=== PATIENT | female | born 2000 | race Caucasian/White ===

== ENCOUNTER 2022-11-12 14:43 | Emergency (ER) | payer BC, SELFPAY ==
[2022-11-12 14:48] VITALS: BP 148/88; PULSE 99; RESP 18; TEMP 37; O2SAT 98
--- NOTE | 2022-11-12 15:59 | NUR.NOTE ---
Pt referred to [facility] for Corneal Abrasion Rt Eye over Pupil. Sr would like Pt seen Monday.
--- NOTE | 2022-11-12 16:06 | W.ED.GENAD ---
Discharge Plan Disposition Patient Disposition: Home Discharge Details Clinical Impression: Corneal abrasion, right Primary Care Provider: Unknown,Unknown ED Provider: Sharmaine Rucker Home Meds and New Rx's Prescriptions: New ketorolac 10 mg tablet 10 mg PO Q6H PRN (Reason: pain) 3 Days Qty: 12 0RF levofloxacin 1.5 % drops 2 drp ophthalmic (eye) Q2H Qty: 5 0RF Rx Instructions: while awake, x48 hrs, until seen by eye doc Monday Continued norgestrel-ethinyl estradiol 0.3-30 mg-mcg (21) Tablet 1 tab PO DAILY Discharge Instructions Instructions: Corneal Abrasion (ED) Additional Instructions: Cold compress with eye closed may help the pain. This should be much better by tomorrow. Use the Cipro drops every 2 hours while awake. Take the Toradol has needed for pain. This should reduce inflammation. [facility] should call you Monday morning to be rechecked on Monday. If you do not hear from them by 9:00 AM then call them at [phone]. Return to ED tomorrow for worsening pain. Do not wear your contacts until cleared by ophthalmology. Medical Decision Making Patient wanted to take the tetracaine home and I told her this is still not widely excepted by ophthalmology so it was not a great idea. She was given some Toradol IM. She was told not to wear her contact lenses until cleared by ophthalmology. We did give her a Levaquin eye drop prescription to go home with as well as po Toradol. She will see [facility] on Monday. I did tell her to keep her eyes closed and put a little bit of ice lightly over her eye. She was told that if she was not better by tomorrow to come back and we could reexamine her. Medical Records Medical records reviewed: Yes I reviewed the patient's medical records. HPI General Date/Time Provider Initiated Documentation: 11/12/22 14:59. HPI Narrative: This 22-year-old female patient presents with a chief complaint of right eye irritation. 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 Her eye was a little bit irritated and when she got home she took her contact lenses out. This morning she woke up and her eye hurt a whole lot more. She reports that feels a little bit blurred. It hurts when she moves her eyes or blanks. Her tetanus shot is up-to-date. Eye is red and tearing. Related Data Home Medications Medication Instructions Recorded Confirmed ketorolac 10 mg tablet 10 mg PO Q6H PRN pain 3 days #12 11/12/22 tabs levofloxacin 1.5 % eye drops 2 drp ophthalmic (eye) Q2H #5 mL 11/12/22 norgestrel 0.3 mg-ethinyl 1 tab PO DAILY 11/12/22 11/12/22 estradiol 30 mcg (21) tablet Previous Rx's Medication Instructions Recorded ketorolac 10 mg tablet 10 mg PO Q6H PRN pain 3 days #12 11/12/22 tabs levofloxacin 1.5 % eye drops 2 drp ophthalmic (eye) Q2H #5 mL 11/12/22 Allergies Allergy/AdvReac Type Severity Reaction Status Date / Time Penicillins Allergy Hives Unverified 11/12/22 14:50 General Stated Complaint: EyeProblem THEODORA: 4 Review of Systems Constitutional Constitutional: Denies fever(s) Eyes Eyes: Reports blurry vision (R) and Reports irritation (R) PFSH All Active Problems Corneal abrasion, right (Acute) Social History Smoking/Tobacco Use Status: Never Smoking risk assessment performed?: Yes Alcohol Intake: current Alcohol Intake frequency: a few times a month Substance use type: does not use Exam Const General: uncomfortable, well developed and well groomed Nutritional Appearance: well nourished Orientation: alert and awake [facility] Head: normocephalic and atraumatic Face and sinus: normal facial exam Eyes Periorbital: periorbital findings normal Eyelids: eyelids normal Conjunctivae: conjunctivae normal ( Injected right) Cornea: corneas abnormal ( R eye fluorescein stained, round uptake noted over lateral pupil, 2-3 mm), fluorescein used and other (no ulcer evident) Pupils: PERRL EOM: EOM intact bilaterally Course Vital Signs Vital signs: Vital Signs Temperature 37.0 C 11/12/22 14:48 Pulse 99 H 11/12/22 14:48 Respiratory Rate 18 11/12/22 14:48 Blood Pressure 148/88 H 11/12/22 14:48 Pulse Oximetry 98 11/12/22 14:48 Temperature 37.0 C 11/12/22 14:48 Temperature Source Skin 11/12/22 14:48 Pulse 99 H 11/12/22 14:48 Respiratory Rate 18 11/12/22 14:48 Respiratory Effort Normal, Non-Labored 11/12/22 14:51 Blood Pressure 148/88 H 11/12/22 14:48 Blood Pressure Position Sitting 11/12/22 14:48 Pulse Oximetry 98 11/12/22 14:48 Oxygen Delivery Method Room Air 11/12/22 14:48 Oxygen Flow Rate 0 11/12/22 14:48 Pain Level 7 11/12/22 14:48 Procedures Other Description: 2 drops Tetracaine placed into bilateral eyes as initially I thought the problem was with both of the patient's eyes. This gave her complete relief. I left the room to see a trauma patient and had to put additional drops into the patient's right eye for comfort on returning to her. Fluorescein stain was put into the right eye below the iris and [place] lamp revealed a 2 to 3 mm round area of uptake in the patient's cornea over the lateral aspect of the pupil.
[2022-11-12] MEDS: Ketorolac 30 MG/ML VIAL IM (16:33)
[2022-11-12] MEDS: Fluorescein STRIPS 100/BOX 1 MG (16:38)
== END 2022-11-12 16:33 | disposition home or self-care (01) ==
PROVIDERS: Emergency Provider Emergency Medicine
DX: S05.01XA Injury of conjunctiva and corneal abrasion without foreign body, right eye, initial encounter (principal); X58.XXXA Exposure to other specified factors, initial encounter
CPT/HCPCS: 96372; 99284; J1885

== ENCOUNTER 2022-11-13 06:53 | Emergency (ER) | payer BC, SELFPAY ==
[2022-11-13 07:00] VITALS: BP 118/94; PULSE 78; RESP 18; TEMP 36.2; O2SAT 100
--- NOTE | 2022-11-13 07:14 | ED.GENADUL_ITS ---
Discharge Plan Disposition Patient Disposition: Other Disposition Not Listed Other Facility: [facility] Condition: Serious Discharge Details Clinical Impression: Decreased vision of right eye Primary Care Provider: Unknown,Unknown ED Provider: Lee Lujan Home Meds and New Rx's Prescriptions: Continued norgestrel-ethinyl estradiol 0.3-30 mg-mcg (21) Tablet 1 tab PO DAILY ketorolac 10 mg tablet 10 mg PO Q6H PRN (Reason: pain) 3 Days Qty: 12 0RF levofloxacin 1.5 % drops 2 drp ophthalmic (eye) Q2H Qty: 5 0RF Rx Instructions: while awake, x48 hrs, until seen by eye doc Monday Discharge Instructions Additional Instructions: I spoke with [facility] patient resource specialist who recommended you go down to their clinic for an evaluation. You should go to their main entrance and their clinic is on level 4B Medical Decision Making 22 yo female with no significant pmhx comes in with decreased vision in the right eye. She states she had pain in the right eye spontaneously Monday night and thought it was due to her contacts. She then came in yesterday due to continued pain, diagnosed with corneal abrasion and discharged on levofloxacin drops. She states her pain is improved but states this morning noticed she could only see white out of her right eye. She has a visual acutiy of 0 on the right eye, 20/50 in the left eye without her contacts. She has diffuse erythema of the right eye with white cloud appearing over the pupil. Slow response to light in the pupil but does constrict. Eomi, no deep eye pain. Will place tetracaine and reexamine for foreign body. No visible foreign body, corneal abrasion on the cornea at the 12 oclock position on the conjunctiva. Will consult [facility] Spoke with optho Dr. Ordaz who recommended she go directly to their eye clinic at [facility] on level 4B where they can see her and evaluate her more expeditiously, pt and mother understand this and will go directly to their clinic Differential Diagnosis Differential Diagnosis: corneal abrasion, iritis, endophthalmitis HPI General Mode of arrival: ambulatory . Date/Time Provider Initiated Documentation: 11/13/22 07:02 . Limitations to Documentation: no limitations . Information obtained by: patient . History of Present Illness 22 year old F presents to the emergency department with the chief complaint of right eye vision loss, described as moderate, Quality is described as constant, Patient started experiencing this day(s) (1) and it has been constant. No relieving factors improve symptom(s), No exacerbating factors reported . Patient notes no other symptoms.. Patient did receive the following treatments prior to arrival, none Related Data Home Medications Medication Instructions Recorded Confirmed ketorolac 10 mg tablet 10 mg PO Q6H PRN pain 3 days #12 11/12/22 tabs levofloxacin 1.5 % eye drops 2 drp ophthalmic (eye) Q2H #5 mL 11/12/22 norgestrel 0.3 mg-ethinyl 1 tab PO DAILY 11/12/22 11/12/22 estradiol 30 mcg (21) tablet Previous Rx's Medication Instructions Recorded ketorolac 10 mg tablet 10 mg PO Q6H PRN pain 3 days #12 11/12/22 tabs levofloxacin 1.5 % eye drops 2 drp ophthalmic (eye) Q2H #5 mL 11/12/22 Allergies Allergy/AdvReac Type Severity Reaction Status Date / Time Penicillins Allergy Hives Unverified 11/12/22 14:50 General Stated Complaint: EyeProblem THEODORA: 4 Review of Systems All systems reviewed & are unremarkable except as noted in HPI and below Constitutional Constitutional: Denies chills, Denies fever(s) and Denies weakness Cardiovascular Cardiovascular: Denies chest pain and Denies dyspnea Respiratory Respiratory: Denies cough and Denies dyspnea Gastrointestinal Gastrointestinal: Denies abdominal pain, Denies nausea and Denies vomiting Musculoskeletal Musculoskeletal: Denies joint swelling Neurologic Neurologic: Denies weakness PFSH All Active Problems (Updated 11/13/22 @ 08:00 by Lee Lujan MD) Corneal abrasion, right (Acute) Decreased vision of right eye (Acute) Social History Smoking/Tobacco Use Status: Never Smoking risk assessment performed?: Yes Alcohol Intake: current Alcohol Intake frequency: a few times a month Substance use type: does not use Housing: house Exam Const General: no acute distress Orientation: alert HENMT Head: normal to inspection Ears: external ears normal General nose exam: external nose normal Mouth: moist mucous membranes Eyes Periorbital: periorbital findings normal Neck Neck: normal visual inspection Resp Effort & Inspection: normal respiratory effort and able to speak in complete sentences Cardio Rate: regular rate Skin General skin exam: no rashes or lesions noted Neuro General: patient alert and patient oriented x3 Extrem General: normal to inspection Psych Mental Status: mental status grossly normal Course Vital Signs Vital signs: Vital Signs Temperature 36.2 C L 11/13/22 07:00 Pulse 78 11/13/22 07:00 Respiratory Rate 18 11/13/22 07:00 Blood Pressure 118/94 H 11/13/22 07:00 Pulse Oximetry 100 11/13/22 07:00 Temperature 36.2 C L 11/13/22 07:00 Temperature Source Temporal Artery Scan 11/13/22 07:00 Pulse 78 11/13/22 07:00 Respiratory Rate 18 11/13/22 07:00 Blood Pressure 118/94 H 11/13/22 07:00 Blood Pressure Position Sitting 11/13/22 07:00 Pulse Oximetry 100 11/13/22 07:00 Oxygen Delivery Method Room Air 11/13/22 07:00 Oxygen Flow Rate 0 11/13/22 07:00 Pain Level 0 11/13/22 07:00
[2022-11-13 07:33] VITALS: BP 118/94; PULSE 78; RESP 18; TEMP 36.2; O2SAT 100
[2022-11-13] MEDS: Fluorescein STRIPS 100/BOX 1 MG OP (07:37)
[2022-11-13] MEDS: Balanced Salt Solution 15 ML BTL OP (07:37)
== END 2022-11-13 08:12 | disposition other institution (70) ==
PROVIDERS: Emergency Provider Emergency Medicine
DX: H54.61 Unqualified visual loss, right eye, normal vision left eye (principal)
CPT/HCPCS: 99285